=== PATIENT | male | born 1960 | race Caucasian/White ===

== ENCOUNTER 2021-04-22 09:43 | Inpatient (IN) | payer OTHER ==
[~2021-04-22] VITALS: Ht 172.7 cm; Wt 69.0 kg
--- NOTE | 2021-04-22 10:33 | NUR ---
PT AMBULATORY TO ROOM 31 W/ C/O R SIDE DENTAL SWELLING AND PAIN. SX STARTED MONDAY. PT STATES HE HAD DENTAL ISSUES AND THE SWELLING INCREASED MONDAY. PT CAME TO ED YESTERDAY AND WAS TOLD TO BE ADMITTED FOR ABX TX PT REFUSED AND LEFT AMA. BACK TODAY FOR ADMISSION AND PROPER TX. PT STATES HE DID FILL AUGMENTIN RX BUT LOST THE PAPERWORK TO F/U W/ ORAL SURGERY. PT RESTING ON GURNEY. NADN. MONITORS APPLIED. VSS. WARM BLANKET PROVIDED. CALL LIGHT IN REACH.
--- NOTE | 2021-04-22 11:22 | NUR ---
ERP DR. BLANK AT BEDSIDE FOR EVAL.
[2021-04-22] MEDS ORDERED: VANCOMYCIN 1,600 MG in SODIUM CHLORIDE 0.9% 250 ML IV ONE (11:30)
[2021-04-22] MEDS ORDERED: PIPERACILLIN/TAZO 3.375 GM in DEXTROSE 5% 50 ML IVPB ONE (11:30)
[2021-04-22] MEDS ORDERED: VANCOMYCIN PER PHARMACY MC ONE (11:30)
[2021-04-22] MEDS ORDERED: SODIUM CHLORIDE FLUSH 10ML SYR IVF ONE (11:30)
--- NOTE | 2021-04-22 11:53 | NUR ---
PT RESTING ON GURNEY. NADN. VENTURA.
[2021-04-22 11:59] LABS: BASOPHILS % (AUTO) 0 % (0-1); EOSINOPHILS % (AUTO) 0 % (1-7); LYMPHOCYTES % (AUTO) 4 % (22-44); MEAN CORPUSCULAR HEMOGLOBIN 33.7 pg (27.5-34.5); MEAN CORPUSCULAR HGB CONC 33.9 g/dL (33.2-36.2); MEAN PLATELET VOLUME 7.6 fL (7.4-10.4); MONOCYTES % (AUTO) 11 % (2-9); NEUTROPHILS % (AUTO) 84 % (42-75); PLATELET COUNT 374 x10^3/uL (130-400); RED BLOOD COUNT 4.03 x10^6/uL (4.38-5.82); RED CELL DISTRIBUTION WIDTH 13.1 % (9.4-14.8)
[2021-04-22 12:07] LABS: ALBUMIN 3.2 g/dL (3.4-5.0); ANION GAP 6 mmol/L (5-15); CALCIUM 9.3 mg/dL (8.5-10.1); CHLORIDE 109 mmol/L (98-107); CREATININE 0.76 mg/dL (0.7-1.3)
--- NOTE | 2021-04-22 12:42 | NUR ---
PT RESTING ON GURNEY. GUPTA. VSS. ERP DR. BLANK NOTIFIED OF 1 BC ORDER. SECOND ORDER BC PLACED BY ERP. AWAITING LAB DRAW PRIOR TO START OF IV ABX.
[2021-04-22] MEDS ORDERED: HYDROmorphone 1 MG/ML, 1ML INJ ONE (13:24)
[2021-04-22] MEDS ORDERED: HYDROmorphone 1 MG/ML, 1ML INJ IV ONE (13:30)
--- NOTE | 2021-04-22 13:31 | NUR ---
PT RESTING ON GURNEY. NADN. VENTURA.
[2021-04-22] MEDS ORDERED: NICOTINE 21 MG/24 HR PATCH.TD24 TD ONE (14:00)
[2021-04-22] MEDS ORDERED: ONDANSETRON 2MG/ML, 2ML IVPush PRN (14:00)
[2021-04-22] MEDS ORDERED: POLYETHYLENE GLYCOL 17 GM PACKET PO PRN (14:00)
[2021-04-22] MEDS: LACTATED RINGERS 1,000 ML IV SCH (14:00)
[2021-04-22] MEDS ORDERED: ONDANSETRON ODT 4 MG PO PRN (14:00)
[2021-04-22] MEDS ORDERED: ACETAMINOPHEN 500 MG TABLET PO PRN (14:00)
[2021-04-22 14:31] VITALS: BP 151/78
[2021-04-22] MEDS: AMPICILLIN/SULBACTAM 3 GM in SODIUM CHLORIDE 0.9% 100 ML IV SCH ×2 (15:49→21:01)
[2021-04-22] MEDS: morphine SULFATE 10 MG/ML, 1ML IVPush PRN ×2 (15:49→21:57)
[2021-04-22] MEDS ORDERED: MIDAZOLAM 1 MG/ML, 2ML ONE (16:56)
[2021-04-22] MEDS ORDERED: FENTANYL PF 100 MCG/2ML ONE ×3 (16:56→18:42)
[2021-04-22] MEDS ORDERED: LIDOCAINE/PF 1%, 30ML ONE (17:19)
[2021-04-22] MEDS ORDERED: EPINEPHRINE 1 MG/ML, 1ML ONE (17:19)
[2021-04-22] MEDS ORDERED: LORazepam 2 MG/ML, 1ML IVPush PRN (17:30)
[2021-04-22] MEDS ORDERED: ALBUTEROL SULFATE 2.5 MG/3 ML NPPB PRN (17:30)
[2021-04-22] MEDS ORDERED: HYDROmorphone 1 MG/ML, 1ML INJ IVPush PRN (17:30)
[2021-04-22] MEDS ORDERED: LABETALOL 5MG/ML, 20ML IV PRN (17:30)
[2021-04-22] MEDS ORDERED: ACETAMINOPHEN 325 MG TABLET PO PRN (17:30)
[2021-04-22] MEDS ORDERED: MEPERIDINE/PF 25MG/0.5ML IVPush PRN (17:30)
[2021-04-22] MEDS ORDERED: PROMETHAZINE 25 MG/ML, 1ML IVPush PRN (17:30)
[2021-04-22] MEDS ORDERED: OXYcodone 5 MG/5 ML ORAL.SOL UDC PO PRN (17:30)
[2021-04-22] MEDS ORDERED: PHENYLEPHRINE 10 MG/ML ONE (17:53)
[2021-04-22] MEDS ORDERED: LIDOCAINE-MPF 2% ,5ML ONE (18:14)
[2021-04-22] MEDS ORDERED: CEFAZOLIN 1,000 MG ONE (18:36)
[2021-04-22] MEDS ORDERED: GLYCOPYRROLATE 0.2MG/1ML, 5ML ONE (18:36)
[2021-04-22] MEDS ORDERED: SUCCINYLCHOLINE 20 MG/ML, 10ML ONE (18:36)
[2021-04-22] MEDS ORDERED: PROPOFOL 10 MG/ML, 20ML ONE (18:36)
[2021-04-22] MEDS ORDERED: ONDANSETRON 2MG/ML, 2ML ONE (18:36)
[2021-04-22] MEDS: FENTANYL PF 100 MCG/2ML IV PRN ×2 (18:44→19:04)
[2021-04-22] MEDS ORDERED: OXYcodone 5 MG/5 ML ORAL.SOL UDC ONE (19:06)
[2021-04-22 19:46] VITALS: BP 178/94
[2021-04-22] MEDS: ENALAPRILAT 1.25 MG/ML, 1ML IV PRN (21:00)
[2021-04-22] MEDS: CHLORHEXIDINE 15 ML UDC MM SCH (23:30)
[2021-04-22] MEDS: HYDROcodone/APAP 5/325 TABLET PO PRN (23:37)
[2021-04-23 00:01] VITALS: BP 143/76
[2021-04-23 02:31] LABS: MICROSCOPIC AUTO
[2021-04-23 02:38] LABS: AMPHETAMINE SCREEN, URINE Negative (Negative); BARBITURATE SCREEN, URINE Negative (Negative); BENZODIAZEPINE SCREEN, URINE Positive (Negative); CANNABINOID SCREEN, URINE Positive (Negative); COCAINE SCREEN, URINE Negative (Negative); METHADONE SCREEN, URINE Negative (Negative); OPIATE SCREEN, URINE Positive (Negative)
[2021-04-23] MEDS: AMPICILLIN/SULBACTAM 3 GM in SODIUM CHLORIDE 0.9% 100 ML IV SCH ×4 (02:43→20:30)
[2021-04-23] MEDS: HYDROcodone/APAP 5/325 TABLET PO PRN ×3 (03:47→17:41)
[2021-04-23 03:55] VITALS: BP 129/78
[2021-04-23] MEDS: LACTATED RINGERS 1,000 ML IV SCH (04:14)
[2021-04-23 07:29] VITALS: BP 146/74
[2021-04-23] MEDS: SENNA/DOCUSATE TABLET PO SCH (08:14)
[2021-04-23] MEDS: CHLORHEXIDINE 15 ML UDC MM SCH ×3 (08:14→20:30)
[2021-04-23 08:16] LABS: ALANINE AMINOTRANSFERASE 18 U/L (12-78); ALBUMIN 2.5 g/dL (3.4-5.0); ANION GAP 6 mmol/L (5-15); CALCIUM 8.5 mg/dL (8.5-10.1); CHLORIDE 107 mmol/L (98-107); CREATININE 0.46 mg/dL (0.7-1.3)
[2021-04-23 08:18] LABS: ALKALINE PHOSPHATASE 89 U/L (45-117); BILIRUBIN,TOTAL 0.4 mg/dL (0.2-1.0); TOTAL PROTEIN 6.4 g/dL (6.4-8.2)
[2021-04-23 08:19] LABS: BASOPHILS % (AUTO) 0 % (0-1); EOSINOPHILS % (AUTO) 2 % (1-7); LYMPHOCYTES % (AUTO) 10 % (22-44); MEAN CORPUSCULAR HEMOGLOBIN 33.9 pg (27.5-34.5); MEAN CORPUSCULAR HGB CONC 34.3 g/dL (33.2-36.2); MONOCYTES % (AUTO) 11 % (2-9); NEUTROPHILS % (AUTO) 77 % (42-75); PLATELET COUNT 344 x10^3/uL (130-400); RED BLOOD COUNT 3.56 x10^6/uL (4.38-5.82); RED CELL DISTRIBUTION WIDTH 13.3 % (9.4-14.8)
[2021-04-23 12:14] VITALS: BP 155/85
[2021-04-23] MEDS ORDERED: POTASSIUM CHLORIDE 20 MEQ PACKET PO ONE (12:30)
[2021-04-23 20:14] VITALS: BP 151/87
[2021-04-23] MEDS ORDERED: NICOTINE 21 MG/24 HR PATCH.TD24 ONE (20:25)
[2021-04-23] MEDS: NICOTINE 21 MG/24 HR PATCH.TD24 TD SCH (20:30)
[2021-04-24] MEDS: AMPICILLIN/SULBACTAM 3 GM in SODIUM CHLORIDE 0.9% 100 ML IV SCH ×3 (02:46→15:00)
[2021-04-24 02:54] VITALS: BP_SYST 175; BP_SYST 180; BP_DIAS 85; BP_DIAS 93
[2021-04-24] MEDS: HYDROcodone/APAP 5/325 TABLET PO PRN ×3 (03:00→12:47)
[2021-04-24] MEDS: ENALAPRILAT 1.25 MG/ML, 1ML IV PRN ×2 (03:01→09:04)
[2021-04-24 05:54] LABS: ANION GAP 6 mmol/L (5-15); BASOPHILS % (AUTO) 0 % (0-1); CALCIUM 8.4 mg/dL (8.5-10.1); CHLORIDE 109 mmol/L (98-107); EOSINOPHILS % (AUTO) 4 % (1-7); LYMPHOCYTES % (AUTO) 14 % (22-44); MEAN CORPUSCULAR HEMOGLOBIN 34.3 pg (27.5-34.5); MONOCYTES % (AUTO) 14 % (2-9); NEUTROPHILS % (AUTO) 68 % (42-75); PLATELET COUNT 369 x10^3/uL (130-400); RED CELL DISTRIBUTION WIDTH 13.3 % (9.4-14.8)
[2021-04-24 05:55] LABS: CREATININE 0.41 mg/dL (0.7-1.3)
[2021-04-24 06:59] VITALS: BP 173/86
[2021-04-24] MEDS: SENNA/DOCUSATE TABLET PO SCH (08:48)
[2021-04-24] MEDS: CHLORHEXIDINE 15 ML UDC MM SCH ×2 (09:03→16:00)
[2021-04-24] MEDS: NICOTINE 21 MG/24 HR PATCH.TD24 TD SCH (09:04)
[2021-04-24] MEDS ORDERED: CEFD300C37 PO (13:18)
[2021-04-24 13:59] VITALS: BP 163/86
[2021-04-24] MEDS ORDERED: OXYC-302 PO (14:24)
[2021-04-24 16:15] VITALS: BP 160/81
== END 2021-04-24 16:27 | disposition home or self-care (01) | DRG 854 ==
LOC: ED 11:55 → EDIP 12:04 → 4NE 13:57
PROVIDERS: ADMIT Family Medicine; ATTEND Family Medicine
PROC: 0CDXXZ1 Extraction of Lower Tooth, Multiple, External Approach (ICD-10-PCS; 2021-04-22)
PROC: 0J910ZZ Drainage of Face Subcutaneous Tissue and Fascia, Open Approach (ICD-10-PCS; principal; 2021-04-22 17:30)
DX: A41.9 Sepsis, unspecified organism (principal); L03.211 Cellulitis of face; K12.2 Cellulitis and abscess of mouth; Z20.822 Contact with and (suspected) exposure to COVID-19; F10.10 Alcohol abuse, uncomplicated; K02.9 Dental caries, unspecified; K04.7 Periapical abscess without sinus; K05.6 Periodontal disease, unspecified; M19.90 Unspecified osteoarthritis, unspecified site
CPT/HCPCS: 36415; 96374; 96375; 99285; J3490; 71045; 80048; 80053; 80307; 81001; 82040; 83605; 85025; 87040; 87070; 87075; 87205; 87635; 93005; G0378; J0171; J0295; J0690; J1170; J2250; J2405; J2543; J2704; J3010; J3370; J0330; J2270; J2370; J7050; J7120